=== PATIENT | female | born 1985 | race Caucasian/White ===

== ENCOUNTER 2018-05-05 17:44 | Emergency (ER) | payer BC ==
--- OUTSIDE RECORDS SUMMARY | 2018-05-05 17:53 | XMS REPORT | Continuity of Care Document ---
:1985 External Reference #:[id number] Author Name Lucian Ceja Care Team Providers Name Role Phone Parisa Aponte MD Primary Care Physician Unavailable Payers Type Date Identification Numbers Payment Provider Subscriber Effective: Policy Number: [id number] BS Ethel Story 2017 Group Name: [employer] [address] [address] PayID: [id number] EMELIA Magana [address] Advance Directives Description No Information Available Problems Date Description Provider Status Onset: 04/25/2015 Exercise-induced asthma Vanceraymond Harper NP Active Family History Date Family Member(s) Problem(s) Comments Father Heart Murmur 54 Mother No Current Problems Social History Type Date Description Comments Sex Unknown Marital Status Single 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 [employer] ETOH Use Currently consumes 2 drinks weekly alcohol Tobacco Use Start: Unknown Patient has never smoked Smoking Status Reviewed: 04/24/18 Patient has never smoked Exercise Type/Frequency Exercises regularly Allergies, Adverse Reactions, Alerts Date Description Reaction Status Severity Comments 05/18/2015 Tramadol Active Facial rash 12/14/2015 Bee Sting Active 12/14/2015 Tree Nuts Active 12/14/2015 Shellfish-derived Products Active 04/21/2015 NKDA Inactive Medications Medication Date Status Form Strength Qnty SIG Indications Ordering Provider Butalbital/Ac 04/24 Active Capsules 50-325-40 30cap 1-2 capsules G44.209 Vance etaminophen/C /2019 mg s every 8 hours PAL Harper affeine as needed for ehqdache Naproxen 07/09 Active Tablets 500mg 30tab 1 tablet with Vance /2018 s food by mouth PAL Harper twice a day Fluoxetine 07/09 Active Capsules 20mg 30cap Take One F41.9 Vance HCL s Capsule By PAL Harper Mouth Every Day Hydroxyzine 07/09 Active Tablets 50mg 180ta Take 1-2 F41.9 Vance HCL bs Tablets By PAL Harper Mouth Four Times A Day as Needed Maximum Daily Dose=Eight Tablets 5-HTP 03/[address] 100mg 1 tab sylvester Vance PAL Harper Fluticasone 12/13 Active Suspension 50mcg/Act 16uni 2 sprays each J01.00 Vance Propionate ts nostril qd. PAL Harper Epipen 2-Baljinder 12/13 Active Solution 0.3mg/0.3 1unit one injection Auto-Inject ML s as needed PAL Harper Proair HFA 04/21 Active Aerosol 108(90Bas 1unit take 1-2 puffs J20.9 Vance e) s every 4-6 PAL Harper mcg/Act hours as needed for shortness of breath. L Theanine Active Tablets 100mg 1 by mouth Unknown /0000 every day Trinessa (28) Active Tablets 0.18/0.21 168ta take one Vance / 5/0.25 bs tablet by PAL Harper mg-35 mcg mouth every day Ibuprofen 07/09 Hx Tablets 600mg PAL Harper - 07/09 Paroxetine 04/19 Hx Tablets 20mg 30tab One tab PO F41.9 Vance HCL s daily PAL Harper - 07/09 Escitalopram 03/15 Hx Tablets 10mg 30tab 1/2 tab once F41.9 Vance Oxalate s daily for 1 PAL Harper - week then 07/09 increase to tab daily. Hydroxyzine 03/15 Hx Capsules 25mg 60cap 1-2 caps by Carri1.9 Vance Pamoate s mouth four PAL Harper - times a day as 07/09 needed for anxiety Azithromycin 07/05 Hx Tablets 250mg 6tabs two tabs day Vince Adames /2016 one, then jean-pierre Joseph - tab daily M.D. 03/08 Benzonatate 07/05 Hx Capsules 100mg 30cap 1-2 tab by [id number] Adames /2016 s mouth three Opal, - times a day as M.D. 03/08 needed Acetaminophen 04/24 Hx Tablets 300-30mg 45tab one by mouth S01.511D Vance -Codeine # s every 12 hours Leroy, [employer] - as needed 03/08 cough ( acetominophen 4gm) Acetaminophen 03/28 Hx Tablets 300-30mg 30tab one by mouth S01.511D Vance -Codeine #3 s every 8 hours Leroy, [employer] - as needed 04/06 cough ( acetominophen 4gm) Acetaminophen 12/04 Hx Tablets 300-30mg 30tab one by mouth S01.511D Christen -Codeine # s every 6 hours Varn, - as needed N.P. 03/28 cough Levofloxacin 05/18 Hx Tablets 500mg 10tab one by mouth J01.00 Vance s daily for 10 Leroy, [employer] - days 05/28 Fluticasone 05/18 Hx Suspension 50mcg/Act 16uni 2 sprays each J01.00 Vance ts nostril qd. x Leroy, [employer] - 2 weeks 06/01 Benzonatate 05/18 Hx Capsules 200mg 30cap one by mouth J01.00 Vance s three times Leroy, [employer] - daily as 05/26 needed for cough Azithromycin 04/21 Hx Tablets 250mg 6tabs 2 tabs by J20.9 Vance mouth every Leroy, [employer]ATOR - day x1 day, 1 04/26 tab by mouth every day x 4 days Tramadol HCL 04/21 Hx Tablets 50mg 30tab 1-2 tablets M89.8x8 Vance s every 4-6 Leroy, [employer] - hours as 05/01 needed for pain. Benzonatate 04/21 Hx Capsules 200mg 30cap one by mouth J20.9 Vance s three times Leroy, [employer] - daily as 04/27 needed for cough Naproxen Hx Tablets 500mg 1 tablet with Unknown /0000 food by mouth - twice a day 12/04 Amoxicillin/C Hx Tablets 875-125mg Unknown lavulanate /0000 Potassium - 03/28 Medications Administered in Office Medication Date Status Form Strength Qnty SIG Indications Ordering Provider PPD Administered Injection Nurse Visit 7 A Immunizations CPT Code Status Date Vaccine Lot # [id number] Given 02/14/2018 Fluzone High Dose [id number] Given 02/01/2017 Influenza Virus Vaccine, Quadrivalent, Split, Preservative Free Vital Signs Date Vital Result Comment 04/24/2018 10:33am Height 65 inches 5'5" Weight 176.00 lb Heart Rate 67 /min BP Systolic Sitting 119 mmHg BP Diastolic Sitting 84 mmHg Body Temperature 98.3 F O2 % BldC Oximetry 98 % BMI (Body Mass Index) 29.3 kg/m2 07/09/2017 10:29am Weight 166.50 lb BP Systolic 126 mmHg BP Diastolic 68 mmHg Body Temperature 97.1 F 04/19/2017 3:56pm Weight 153.50 lb Heart Rate 66 /min BP Systolic 120 mmHg BP Diastolic 74 mmHg Body Temperature 96.9 F O2 % BldC Oximetry 97 % 03/15/2017 10:36am Height 65.75 inches 5'5.75" Weight 150.00 lb Heart Rate 82 /min BP Systolic Sitting 120 mmHg BP Diastolic Sitting 72 mmHg Body Temperature 97.1 F O2 % BldC Oximetry 98 % BMI (Body Mass Index) 24.4 kg/m2 07/05/2016 3:53pm Weight 151.00 lb Heart Rate 100 /min BP Systolic Sitting 138 mmHg BP Diastolic Sitting 84 mmHg Respiratory Rate 16 /min Body Temperature 101.9 F O2 % BldC Oximetry 98 % 03/28/2016 3:20pm Weight 155.00 lb Heart Rate 86 /min BP Systolic Sitting 122 mmHg BP Diastolic Sitting 74 mmHg Respiratory Rate 15 /min Body Temperature 98.4 F O2 % BldC Oximetry 98 % 12/05/2015 4:09pm Weight 162.00 lb Heart Rate 85 /min BP Systolic Sitting 142 mmHg BP Diastolic Sitting 91 mmHg Respiratory Rate 16 /min Body Temperature 98.4 F O2 % BldC Oximetry 99 % 05/18/2015 2:51pm Height 65.75 inches 5'5.75" Weight 171.00 lb Heart Rate 74 /min BP Systolic Sitting 115 mmHg BP Diastolic Sitting 72 mmHg Respiratory Rate 15 /min Body Temperature 98.0 F O2 % BldC Oximetry 98 % BMI (Body Mass Index) 27.8 kg/m2 04/21/2015 4:14pm Height 65.75 inches 5'5.75" Weight 167.00 lb Heart Rate 83 /min BP Systolic Sitting 122 mmHg BP Diastolic Sitting 88 mmHg Respiratory Rate 16 /min Body Temperature 98.0 F Pain Level 8 O2 % BldC Oximetry 98 % BMI (Body Mass Index) 27.2 kg/m2 Results Test Date Facility Test Result H/L Range Note CBC Auto Diff 03/15/2017 [facility] White Blood 5.6 10^3/uL N 3.5-10.[address] [place] [address] [phone] Red Blood Count 4.51 10^6/uL N 4.0-5.4 Hemoglobin 14.7 g/dL N 12.0-16.0 Hematocrit 43 % N 35-47 Mean Corpuscular Volume 94 fL N 80-97 Mean Corpuscular Hemoglobin 33 pg High 27-31 Mean Corpuscular HGB Conc 34 g/dL N 31-36 Red Cell Distribution Width 13 % N 10.5-15 Platelet Count 263 10^3/uL N 150-450 Mean Platelet Volume 9 um3 N 7.4-10.4 Abs Neutrophils 3.3 10^3/uL N 1.5-7.7 Abs Lymphocytes 1.6 10^3/uL N 1.0-4.8 Abs Monocytes 0.5 10^3/uL N 0-0.8 Abs Eosinophils 0.1 10^3/uL N 0-0.6 Abs Basophils 0 10^3/uL N 0-0.2 Abs Nucleated RBC 0 10^3/uL Granulocyte % 59.7 % N 38-83 Lymphocyte % 29.3 % N 25-47 Monocyte % 9.0 % N 1-9 Eosinophil % 1.6 % N 0-6 Basophil % 0.4 % N 0-2 Nucleated Red Blood Cells % 0.1 Comp Metabolic Panel 03/15/2017 [facility] Sodium 138 mmol/L N 133-[address] [place] [address] [phone] Potassium 3.9 mmol/L N 3.5-5.0 Chloride 104 mmol/L N 101-111 Co2 Carbon Dioxide 27 mmol/L N 22-32 Anion Gap 7 mmol/L N 2-11 Glucose 77 mg/dL N 70-100 Blood Urea Nitrogen 8 mg/dL N 6-24 Creatinine 0.75 mg/dL N 0.51-0.95 BUN/Creatinine Ratio 10.7 N 8-20 Calcium 8.9 mg/dL N 8.6-10.3 Total Protein 6.6 g/dL N 6.4-8.9 Albumin 3.6 g/dL N 3.2-5.2 Globulin 3.0 g/dL N 2-4 Albumin/Globulin Ratio 1.2 N 1-3 Total Bilirubin 0.50 mg/dL N 0.2-1.0 Alkaline Phosphatase 46 U/L N 34-104 Alt 13 U/L N 7-52 Ast 16 U/L N 13-39 Egfr Non- 90.7 >60 Egfr 116.7 >60 1 Laboratory test 03/15/2017 [facility] TSH (Thyroid 1.18 mcIU/mL N 0.34-5.[address] Stim [place]orm) [place] [address] [phone] Laboratory test 07/05/2016 [facility] In House Rapid Group A Negative finding Strep CBC Auto Diff 12/04/2015 [facility] White Blood 10.3 10^3/uL N 3.5-10.[address] [place] [address] [phone] Red Blood Count 4.61 10^6/uL N 4.0-5.4 Hemoglobin 14.6 g/dL N 12.0-16.0 Hematocrit 43 % N 35-47 Mean Corpuscular Volume 94 fL N 80-97 Mean Corpuscular Hemoglobin 32 pg High 27-31 Mean Corpuscular HGB Conc 34 g/dL N 31-36 Red Cell Distribution Width 13 % N 10.5-15 Platelet Count 295 10^3/uL N 150-450 Mean Platelet Volume 9 um3 N 7.4-10.4 Abs Neutrophils 5.3 10^3/uL N 1.5-7.7 Abs Lymphocytes 3.8 10^3/uL N 1.0-4.8 Abs Monocytes 0.7 10^3/uL N 0-0.8 Abs Eosinophils 0.3 10^3/uL N 0-0.6 Abs Basophils 0.2 10^3/uL N 0-0.2 Abs Nucleated RBC 0.01 10^3/uL N Granulocyte % 51.8 % N 38-83 Lymphocyte % 37.2 % N 25-47 Monocyte % 6.7 % N 1-9 Eosinophil % 2.7 % N 0-6 Basophil % 1.6 % N 0-2 Nucleated Red Blood Cells % 0 N Comp Metabolic Panel 12/04/2015 [facility] Sodium 137 mmol/L N 133-[address] [place] [address] [phone] Potassium 3.5 mmol/L N 3.5-5.0 Chloride 107 mmol/L N 101-111 Co2 Carbon Dioxide 20 mmol/L Low 22-32 Anion Gap 10 mmol/L N 2-11 Glucose 167 mg/dL High 70-100 Blood Urea Nitrogen 12 mg/dL N 6-24 Creatinine 0.77 mg/dL N 0.51-0.95 BUN/Creatinine Ratio 15.6 N 8-20 Calcium 8.9 mg/dL N 8.6-10.3 Total Protein 6.8 g/dL N 6.4-8.9 Albumin 3.7 g/dL N 3.2-5.2 Globulin 3.1 g/dL N 2-4 Albumin/Globulin Ratio 1.2 N 1-3 Total Bilirubin 0.20 mg/dL N 0.2-1.0 Alkaline Phosphatase 54 U/L N 34-104 Alt 12 U/L N 7-52 Ast 14 U/L N 13-39 Egfr Non- 89.3 N >60 Egfr 114.8 N >60 2 1 Because ethnic data is not always readily available, this report includes an eGFR for both -Americans and non- Americans. The National Kidney Disease Education Program (NKDEP) does not endorse the use of the MDRD equation for patients that are not between the ages of 18 and 70, are , have extremes of body size, muscle mass, or nutritional status, or are non- or non-. According to the National Kidney Foundation, irrespective of diagnosis, the stage of the disease is based on the level of kidney function: Stage Description GFR(mL/min/1.73 m(2)) 1 Kidney damage with normal or decreased GFR 90 2 Kidney damage with mild decrease in GFR 60-89 3 Moderate decrease in GFR 30-59 4 Severe decrease in GFR 15-29 5 Kidney failure <15 (or dialysis) 2 Because ethnic data is not always readily available, this report includes an eGFR for both -Americans and non- Americans. The National Kidney Disease Education Program (NKDEP) does not endorse the use of the MDRD equation for patients that are not between the ages of 18 and 70, are , have extremes of body size, muscle mass, or nutritional status, or are non- or non-. According to the National Kidney Foundation, irrespective of diagnosis, the stage of the disease is based on the level of kidney function: Stage Description GFR(mL/min/1.73 m(2)) 1 Kidney damage with normal or decreased GFR 90 2 Kidney damage with mild decrease in GFR 60-89 3 Moderate decrease in GFR 30-59 4 Severe decrease in GFR 15-29 5 Kidney failure <15 (or dialysis) Procedures Description No Information Available Encounters Type Date Location Provider Dx Diagnosis Office Visit 07/09/2017 [facility] Vance Harper NP F41.9 Anxiety disorder , 10:20a Medicine - unspecified [place] Office Visit 04/19/2017 [facility] Vance Harper NP F41.9 Anxiety disorder , 3:40p Medicine - unspecified [place] Office Visit 03/15/2017 [facility] Vance Harper NP F41.9 Anxiety disorder , 10:40a Medicine - unspecified [place] Z11.1 Encounter for screening for respiratory tuberculosis Office Visit 07/05/2016 [facility] Jeremy Adames J02.9 Acute pharyngitis, 3:40p Valery Joseph M.D. unspecified [place] Office Visit 03/28/2016 [facility] Vance Harper NP S01.511D Laceration without 3:40p Medicine - foreign body of [place] lip, subsequent encounter Office Visit 12/05/2015 [facility] Christen Delarsoa, G89.11 Acute pain due to 4:20p Medicine - N.P. trauma [place] W54.0xxD Bitten by dog, subsequent encounter S01.511D Laceration without foreign body of lip, subsequent encounter Office Visit 05/18/2015 2:40p [facility] Vance Harper J01.00 Acute maxillary Medicine - [employer] sinusitis, [place] unspecified Office Visit 04/21/2015 3:20p [facility] Vance Harper, J20.9 Acute bronchitis, Medicine - [employer] unspecified [place] R07.89 Other chest pain Plan of Treatment 04/24/2018 - Vance Harper, NPG44.209 Tension-type headache, unspecified, not intractableNew Medication:Butalbital/Acetaminophen/Caffeine 50-325-40 mg - 1-2 capsules every 8 hours as needed for ehqdacheComments:It is very important to stay well hydrated. Try to limit caffeine. Working on relaxation techniques and stress management with your counselor can help.Try the medication as needed.
[2018-05-05 18:35] VITALS: BP 144/92
--- NOTE | 2018-05-05 19:59 | UC ---
Skin Complaint HPI - HPI Summary HPI Summary: 33-year-old woman comes in with chief complaint of a rash on her legs. Started in the last 1 day it's itchy. Patient's concerned it's reaction to the Augmentin that she is on for the dog bite to her left hand which occurred on May 02. She had her hand sutured up at that time and started on Augmentin. She feels like the hand is healing up well. Rash on the inside of her legs no known contact dermatitis. Feels well otherwise no fevers no chills. - History of Current Complaint Chief Complaint: UCSkin Time Seen by Provider: 05/05/18 19:52 Stated Complaint: SKIN COMP Hx Last Menstrual Period: 05/02/18 Pain Intensity: 6 - Allergy/Home Medications Allergies/Adverse Reactions: Allergies Allergy/AdvReac Type Severity Reaction Status Date / Time No Known Allergies Allergy Verified 05/05/18 18:27 Home Medications: Home Medications Amoxicillin/Clavulanate TAB* [Augmentin TAB 875*] 1 tab BID 05/05/18 [History Confirmed 05/05/18] PMH/Surg Hx/FS Hx/Imm Hx Previously Healthy: Yes - Surgical History Surgical History: Yes Surgery Procedure, Year, and Place: acl left. lip reconstruction d/t dog bite, 2015 - Family History Known Family History: Negative: Cardiac Disease, Hypertension, Diabetes - Social History Alcohol Use: None Substance Use Type: None Smoking Status (MU): Never Smoked Tobacco Review of Systems All Other Systems Reviewed And Are Negative: Yes Constitutional: Positive: Negative Skin: Positive: Other - SEE HPI Eyes: Positive: Negative ENT: Positive: Negative Respiratory: Positive: Negative Cardiovascular: Positive: Negative Gastrointestinal: Positive: Negative Motor: Positive: Negative Neurovascular: Positive: Negative Musculoskeletal: Positive: Negative Neurological: Positive: Negative Is Patient Immunocompromised?: No Physical Exam Triage Information Reviewed: Yes Appearance: Well-Appearing, No Pain Distress, Well-Nourished Vital Signs: Initial Vital Signs Temp 98.6 F 05/05/18 18:29 Pulse 85 05/05/18 18:29 Resp 16 05/05/18 18:29 BP 144/92 05/05/18 18:29 Pulse Ox 100 05/05/18 18:29 Vital Signs Reviewed: Yes Eye Exam: Normal Eyes: Positive: Conjunctiva Clear Neck exam: Normal Neck: Positive: Supple Respiratory: Positive: No respiratory distress Musculoskeletal Exam: Normal Musculoskeletal: Positive: Strength Intact, ROM Intact Neurological Exam: Normal Neurological: Positive: Alert, Muscle Tone Normal Psychological Exam: Normal Psychological: Positive: Age Appropriate Behavior Skin: Positive: Other - On the left hand there are 2 lacerations that are sutured. Clean dry and intact. There is some swelling no erythema. On the inside of the legs there is a blanching flat erythematous rash on the insides of the legs. It's not raised. Course/Dx - Course Course Of Treatment: The rash on the inside of the legs does not appear to be hives. The patient's concerned that the rash is secondary to the Augmentin that she is on therefore we will changed to doxycycline. Patient will need to get reevaluated if there is any worsening of her conditions are questions or concerns. - Diagnoses Provider Diagnosis: Rash Discharge - Sign-Out/Discharge Documenting (check all that apply): Patient Departure All imaging exams completed and their final reports reviewed: No Studies - Discharge Plan Condition: Stable Disposition: HOME Prescriptions: DOXYcycline CAP(*) [DOXYcycline 100MG CAP(*)] 100 mg PO BID #14 cap Patient Education Materials: Acute Rash (ED) Referrals: Vance Harper NP [Primary Care Provider] - Additional Instructions: FOLLOW UP WITH YOUR DOCTOR IF NOT COMPLETELY IMPROVED. GET RECHECKED SOONER WITH ANY WORSENING OF YOUR CONDITION OR QUESTIONS OR CONCERNS. - Billing Disposition and Condition Condition: STABLE Disposition: Home
== END 2018-05-05 20:02 | disposition home or self-care (01) ==
LOC: UCCORT 17:44
DX: R21 Rash and other nonspecific skin eruption (principal)
CPT/HCPCS: 99212; G0463

== ENCOUNTER 2022-04-15 21:00 | Inpatient (IN) ==
[2022-04-15] MEDS ORDERED: Oxytocin 10 UNITS/ML 1 ML VIAL IM ONE (21:33)
[2022-04-15] MEDS: Dibucaine 1% OINT 28.35 GM TUBE PR PRN (22:14)
[2022-04-15] MEDS: Witch Hazel PAD JAR TOPICAL PRN (22:14)
[2022-04-15 23:52] LABS: Urine Benzodiazepine Screen None Detected (None Detect); Urine Cannabinoids Screen None Detected (None Detect); Urine Opiates Screen None Detected (None Detect)
[2022-04-16] MEDS ORDERED: Lidocaine 1% VIAL 10 MG/ML VIAL 30 ML ONE (00:17)
[2022-04-16 06:38] LABS: ABS Basophils 0.1 10^3/ul (0-0.2); ABS Lymphocytes 2.3 10^3/ul (1.0-4.8); ABS Monocytes 1.3 10^3/ul (0-0.8); ABS Neutrophils 19.2 10^3/ul (1.5-7.7); Eosinophil % 0.1 %; Hematocrit 39 % (35-47); Hemoglobin 13.1 g/dL (12.0-16.0); Lymphocyte % 9.9 %; Mean Corpuscular HGB Conc 34 g/dL (31-36); Mean Corpuscular Hemoglobin 32 pg (27-31); Mean Corpuscular Volume 96 fL (80-97); Mean Platelet Volume 9.3 fL (7.4-10.4); Platelet Count 221 10^3/uL (150-450); Red Blood Count 4.04 10^6 /uL (3.70-4.87); Red Cell Distribution Width 14 % (10-15); White Blood Count 22.8 10^3/uL (3.5-10.8)
[2022-04-17 07:43] VITALS: BP 114/76
[2022-04-17] MEDS: Dibucaine 1% OINT 28.35 GM TUBE PR PRN (07:43)
[2022-04-17] MEDS: Witch Hazel PAD JAR TOPICAL PRN (07:43)
== END 2022-04-17 11:26 | disposition home or self-care (01) | DRG 560 ==
LOC: MCHOBOUT 21:00 → MCHOB 21:07
PROVIDERS: ADMIT Midwife; ATTEND Midwife